=== PATIENT | female | born 1950 | race Caucasian/White ===

== ENCOUNTER 2022-09-12 10:48 | Emergency (ER) | payer MEDICARE, SELFPAY ==
--- NOTE | ~2022-09-12 | XR_ITS ---
EXAMINATION: XR abdomen obstructive series DATE: 09/12/2022 11:53 INDICATION: Right upper quadrant pain TECHNIQUE: Upright and supine views of the abdomen were obtained. COMPARISON: None. FINDINGS: The bowel gas pattern is normal. There are no dilated loops of bowel. No free intraperitone al gas is identified. Surgical clips in the right upper quadrant are likely from prior cholecystectom y. The visualized lung bases are clear. Surgical clips project over the left pelvis. Osteitis pubis i s noted. IMPRESSION: 1. Nonobstructive bowel gas pattern. Reviewed, dictated and finalized at location B.
--- NOTE | ~2022-09-12 | XR_ITS ---
Clinical Indication: Cough PA and lateral views of the chest: Comparison: None Findings: The lungs are clear, without evidence of focal consolidation or pleural effusion. Cardiome diastinal silhouette is within normal limits. Bones and soft tissues are unremarkable. Impression: Normal chest. Reviewed, dictated and finalized at location . Impression: Normal chest.
[2022-09-12 11:04] VITALS: BP 144/82; PULSE 64; RESP 16; TEMP 36.3; O2SAT 100
--- NOTE | 2022-09-12 11:26 | ECG_ITS ---
Measurements Intervals [place]ipple Rate: 54 P: -21 VA: 186 QRS: -27 QRSD: 98 T: -12 QT: 423 QTc: 401 Interpretive Statements SINUS BRADYCARDIA BORDERLINE LEFT AXIS DEVIATION [QRS AXIS < -20] VOLTAGE CRITERIA FOR LVH [MEETS CRITERIA IN ONE OF: R(aVL), S(V1), R(V5), R(V5/V6)+S(V1)] NO PREVIOUS ECG AVAILABLE FOR COMPARISON Electronically Signed On 09-12-2022 15:09:03 CDT by Carlene Brewer M.D.
[2022-09-12] MEDS: MAG HYDROX/AL HYDROX/SIMETH 30 ML UDC PO (12:12)
[2022-09-12] MEDS: LIDOCAINE HCL 2% VISC SOLN 15 ML UDC PO (12:12)
--- NOTE | 2022-09-12 12:22 | ED.ABDPAIN ---
HPI - Abdominal Pain General Chief Complaint: Abdominal Pain Stated Complaint: UPPER ABD PAIN Time Seen by Provider: 09/12/22 11:10 Source: patient Mode of arrival: ambulatory Limitations: no limitations History of Present Illness HPI narrative: 72-year-old female presents with complaint of right upper quadrant abdominal pain radiating to mid back starting at 3:00 a.m. this morning. Reports that she has been up since with the pain. Reports that she is belching more than usual. Reports that belching and also passing gas is relieving some of the pain. States that her gave her a Rolaids on the way here but that it was so she sucked on a little bit and then spit it out. She denies nausea vomiting. No chest pain or shortness of breath. No urinary symptoms. Denies constipation. Reports she had similar episode last week and it was better within 2 days. States at that time she thought that it was related to a cough that she had had. Cough is resolved. Patient reports history of a ?irregular heartbeat ?. States that her ?heart skips a beat ?. Called her PCP for an appointment but he is out of office today. She is well-appearing, no acute distress noted. All systems reviewed and negative except as noted above. Related Data Home Medications Medication Instructions Recorded Confirmed atorvastatin 10 mg tablet mg 09/12/22 lisinopril 10 mg tablet mg 09/12/22 metoprolol succinate 100 mg mg PO 09/12/22 tablet,extended release 24 hr pantoprazole 40 mg tablet,delayed mg PO 09/12/22 09/12/22 release spironolactone 25 mg tablet mg 09/12/22 Allergies Allergy/AdvReac Type Severity Reaction Status Date / Time No Known Allergies Allergy Unverified 05/17/11 10:22 Review of Systems Review of Systems: CONSTITUTIONAL: Denies fever, chills, or sweats. EYES: Denies visual changes, redness, or discharge. ENT: Denies rhinorrhea, congestion, sore throat, or otalgia. CARDIOVASCULAR: Denies chest pain, palpitations, or edema. RESPIRATORY: Denies cough or dyspnea. GASTROINTESTINAL: Reports right upper quadrant pain radiating to mid back with belching. Nausea, vomiting, or diarrhea. GENITOURINARY: Denies dysuria or hematuria. SKIN: Denies rash or itching. MUSCULOSKELETAL: Denies back pain, joint pain, or myalgia. NEUROLOGIC: Denies headache, numbness, or weakness. PSYCHIATRIC: Denies anxiety or depression. All other systems reviewed are negative, except as documented in HPI. PMFSH Comments At time of signature, agree with nursing past medical, surgical, social and family history. There is no relevant family history pertinent to the presenting complaint. Exam Narrative: GENERAL: This is a well-nourished, well-developed patient, in no apparent distress. HEAD: normocephalic, atraumatic. EYES: PERRL. Sclera clear/white. Vision is grossly intact. EARS: External ears normal NOSE: External nose normal . NECK: Neck supple, non-tender without lymphadenopathy, masses or thyromegaly. CARDIOVASCULAR: Bradycardia with regular heart rhythm without murmurs, gallops, or rubs. RESPIRATORY: Clear to auscultation. Breath sounds equal bilaterally. No wheezes, rales, or rhonchi. GASTROINTESTINAL: Abdomen soft, non-tender, nondistended. Bowel sounds are active. No hepato-splenomegaly, or palpable masses. No guarding. SKIN: warm, Dry, intact with no suspicious lesions or rash, good texture and turgor. NEURO: awake, alert, and oriented to person, place and time. There were no obvious focal neurologic abnormalities. EXTREMITIES: No joint tenderness, effusion, or edema noted. Course Course Level of Care: Express Care Visit Vital Signs Vital signs: Vital Signs Temperature 36.3 C L 09/12/22 11:04 Pulse Rate 64 09/12/22 11:04 Respiratory Rate 16 09/12/22 11:04 Blood Pressure 144/82 H 09/12/22 11:04 Pulse Oximetry 100 09/12/22 11:04 Temperature 36.3 C L 09/12/22 11:04 Pulse Rate 64 09/12/22 11:0
== END 2022-09-12 12:40 | disposition home or self-care (01) ==
PROVIDERS: Emergency Provider Nurse Practitioner Family; PCP Internal Medicine
DX: K30 Functional dyspepsia (principal); E78.00 Pure hypercholesterolemia, unspecified; I10 Essential (primary) hypertension
CPT/HCPCS: 71046; 74019; 81003; 93005; 99213; A9270; G0463

== ENCOUNTER 2023-04-28 09:03 | Outpatient (CLI) | payer MEDICARE, SELFPAY ==
--- NOTE | ~2023-04-28 | CT_ITS ---
EXAMINATION: CT sinus wo con DATE: 04/28/2023 09:24 INDICATION: Chronic sinusitis TECHNIQUE: Computed tomography (CT) of the paranasal sinuses was performed without intravenous contra st. The dose-length product (DLP) was 295.93 mGy-cm. Iterative reconstruction was used. COMPARISON: None FINDINGS: There is normal development and pneumatization of the paranasal sinuses. The frontal, sphen oid, ethmoid, and maxillary sinuses are clear. The bilateral ostiomeatal complexes are patent. Visual ized soft tissues are unremarkable. There is frontal skull hyperostosis (hyperostosis frontalis inter na), a normal variant. IMPRESSION: 1. Unremarkable paranasal sinuses. Reviewed, dictated and finalized at location L. [facility] [employer]
== END 2023-04-28 09:04 | disposition home or self-care (01) ==
LOC: ANHIMG 09:12
PROVIDERS: PCP Internal Medicine; Visit Provider Nurse Practitioner Family
DX: J32.9 Chronic sinusitis, unspecified (principal)
CPT/HCPCS: 70486

== ENCOUNTER 2023-07-29 07:59 | Outpatient (CLI) | payer MEDICARE, SELFPAY | END 2023-07-29 08:00 | disposition home or self-care (01) | LOC: ANHBWCAUD 08:00 | PROVIDERS: PCP Internal Medicine; Visit Provider Otolaryngology | DX: H90.3 Sensorineural hearing loss, bilateral (principal) | CPT/HCPCS: 92557; 92567 ==

== ENCOUNTER 2024-11-19 09:52 | Emergency (ER) | payer MEDICARE, SELFPAY ==
--- OUTSIDE RECORDS SUMMARY | 2024-11-19 09:54 | XMS_ITS | Encounter Summary ---
Author Organization [facility] Address [address] [place] [address] Phone Care Team Providers Care Electric Truck Driver Name Role Phone Denis Brewer MD Primary Care Provider [phone] Esequiel Talbot MD Unavailable [phone] Yissel Pena MD Unavailable [phone] Keyon Molina MD Primary Care Provider [phone] Encounter Details Date Type Department Care Team (Late st Contact Info) Description 05/05/2017 Orders Only [facility] ProviderTirso MD [address] [place] [id number] Social History Tobacco Use Types Packs/Day Years Used Date Smoking Tobacco: Never Alcohol Use Standard Drinks/Week Comments No 0 (1 standard drink = 0.6 oz pur e alcohol) Comments Unknown Sex and Gender Information Value Date Recorded Sex Assigned at Not on file Legal Sex 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 us Historical Provider LAB BLOOD ORDERABLES Lara l Result documented in this encounter Visit Diagnoses Not on filedocumented in this encounter Additional Health Concerns Infection Onset Date Last Indicated Resolved Time C. difficile Comment:Feces 03/24/18 03/24/2018 04/15/2018 documented as of this encounter Care Teams Electric Truck Driver Relationship Specialty Start Date End Date Denis Brewer MD [address] [place] [address] PCP - General 08/19/16 08/15/24 Keyon Molina MD [address] [place] [address] PCP - General Family Medicine 08/16/24 Esequiel Talbot MD [address] [place] [address] Consulting Physician Cardiovascular Disease 11/20/17 Yissel Pena MD [address] [place] [address] Consulting Physician Gastroenterology 11/20/17 documented as of this encounter
--- OUTSIDE RECORDS SUMMARY | 2024-11-19 09:54 | XMS_ITS | Referral Summary ---
Author Organization [facility] Address [address] [place] [address] Care Team Providers Care Sheriff'S Officer Name Role Phone Esequiel Talbot MD Unavailable [phone] Yissel Pena MD Unavailable [phone] Keyon Molina MD Primary Care Provider [phone] Encounters Date Type Department Care Team Description 11/01/2024 8:35 AM CDT - 11/01/2024 11:59 PM CDT Hospital Encounter [facility] [address] [place] [address] Osteoporosis screening; Post-menopause Discharge Disposition: Discharge to home or self care 09/30/2024 10:00 AM CDT Office Visit [facility] at [address] [place] [address] Donny Marshall NP Irritable bowel syndrome with both constipation and diarrhea (Primary Dx); History of colon resection; Small intestinal bacterial overgrowth (SIBO); Gastroesophageal reflux disease without esophagitis; Nausea without vomiting; Internal hemorrhoids from Last 3 Months Allergies Active Allergy Reactions Criticality Noted Date Comments Levofloxacin Other (See comments) Low 03/30/2023 Muscle pain Medications cholecalciferol (VITAMIN D-3) 5,000 unit capsule Take 1 capsule (5,000 Units total) by mouth synthetic plasterer before breakfast Active pantoprazole DR (PROTONIX) 40 mg EC tablet Take 1 tablet (40 mg total) by mouth every other day 45 tablet 3 04/26/20 21 Active vitamin B complex capsule Take 1 capsule by mouth daily Active senna-docusate (PERICOLACE) 8.6-50 mg Take one pill 1-2 times daily to help with better and more complete bowel movements. 60 tablet 1 01/09/20 23 Active simethicone (GAS-X) 125 mg capsule Take 180 mg by mouth every 6 (six) hours as needed for flatulence Active hydrocortisone (ANUSOL-HC) 25 mg suppository Insert 1 suppository (25 mg total) into the rectum 2 (two) times a day as needed for hemorrhoids 24 suppository 3 01/27/20 24 Active metoprolol XL (TOPROL-XL) 100 mg 24 hr tablet Take 1 tablet (100 mg total) by mouth daily 90 tablet 3 08/17/19 25 Active lisinopriL (PRINIVIL,ZESTR IL) 10 mg tablet Take 1 tablet (10 mg total) by mouth daily 90 tablet 3 08/17/19 25 Active atorvastatin (LIPITOR) 10 mg tablet Take 1 tablet (10 mg total) by mouth daily 90 tablet 3 08/17/19 25 Active spironolactone (ALDACTONE) 25 mg tablet Take 1 tablet (25 mg total) by mouth synthetic plasterer before breakfast 90 tablet 3 08/17/19 25 Active Active Problems Problem Noted Date Diagnosed Date Focal active colitis 03/30/2023 Internal hemorrhoids 03/30/2023 History of colon resection 03/30/2023 Abdominal pain, generalized 02/19/2023 Gastroesophageal reflux disease without esophagi tis 02/19/2023 Assessment & Plan (08/16/2024 1:08 PM CDT): Stable, well controlled; patient reports limited symptoms, continues to use pantoprazole p.r.n. Antibiotic causing adverse effect 02/19/2023 Irregular bowel habits 02/19/2023 Small intestinal bacterial overgrowth (SIBO) 09/2022 Irritable bowel syndrome with diarrhea Assessment & Plan (08/16/2024 1:09 PM CDT): Stable, well controlled; follows with GI; patient reports symptoms are currently limited, no significant abdominal pain, no episodes of diarrhea or constipation Mixed hyperlipidemia 02/16/2023 BMI 34.0-34.9,adult 08/26/2021 Intermittent diarrhea 08/26/2021 Weight loss 04/26/2021 BMI 32.0-32.9,adult 04/26/2021 Postprandial epigastric pain 01/25/2021 Family history of pancreatic cancer 01/25/2021 Duodenitis 01/25/2021 PVC's (premature ventricular contractions) 12/21 Assessment & Plan (08/16/2024 1:08 PM CDT): Stable, well controlled; no recent episodes Continue metoprolol 100 mg daily Assessment & Plan (04/17/2021 12:32 PM DIRECTOR TALENT ACQUISITION): Despite the patient's occasional frequent PVCs, her LV performance is normal in she has had no symptoms to suggest heart failure or palpitations. She will continue with her current therapy and maintain her continued tight blood pressure control. We will review her care on an annual or as-needed basis. Assessment & Plan (12/21/2020 10:40 AM CDT): Some of the comments made to the patient about the frequency of her PVCs have added to her anxiety. We discussed the fact that she has had no symptoms, no evidence for heart failure, and previously normal cardiac structure and performance at the time of angiography and with echocardiography. This puts her in a very safe risk group but I plan to further investigate her frequent P the sees with 24 hour Holter monitor and echocardiography. If LV performance has remained well preserved and her PVC burden is less than 10%, no further investigation or treatment will be necessary. Dyspepsia 11/29/2020 Postprandial abdominal bloating 11/29/2020 Nausea without vomiting 11/29/2020 Elevated bilirubin 11/29/2020 Kidney stone 03/23/2018 Diarrhea of presumed infectious origin 8 UTI (urinary tract infection) 02/24/2018 Overview (02/24/2018): Assessment & Plan (02/24/2018 1:52 PM CDT): Treatment started 02/24, 7 day course of PO Bactrim initiated (02/24-03/03). -first dose of Bactrim administered prior to discharge. Ventral hernia without obstruction or gangrene 0 01/11/2018 Overview (01/11/2018): Added automatically from request for surgery [id number] Acute left-sided thoracic back pain 11/20/2017 Pain of upper abdomen 01/09/2016 Overview (08/21/2016): Upper quadrant abdominal pain Disorder of gallbladder 11/14/2015 Overview (08/21/2016): Gallbladder disease Essential hypertension 10/01/2013 Overview (08/23/2016): Hypertension Assessment & Plan (08/16/2024 1:08 PM CDT): Stable, well controlled, blood pressure at goal; no chest pain pressure orthostatics Continue lisinopril 10 mg daily, metoprolol 100 mg daily, spironolactone 25 mg daily Assessment & Plan (04/17/2021 12:33 PM DIRECTOR TALENT ACQUISITION): Review of the patient's blood pressure log suggests systolic values in the 120s and 130s and diastolics less than 80. Assessment & Plan (12/21/2020 10:44 AM CDT): Patient has my again on her blood pressure therapy. I saw no need for alteration based on her PVC burden identified and so I suggested going back to what was previously tolerated and controlling her hypertension. 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 -Pain well controlled with PO medications 02/23. -02/24 patient discharged home with prescriptions for the following: Acetaminophen 500 mg 2 tabs Q 6 H prn for 7 days (56 tabs) Oxycodone 10 mg Q 6 H prn for 7 days (28 tabs) Status post repair of ventral hernia Assessment & Plan (02/24/2018 1:51 PM CDT): -02/15 Ex lap, SBR, mesh excision , strattice MESH, LLQ subfascial drain placed and RLQ drain subcutaneous. -NGT clamp trial successful and NGT removed 02/20. Patient passing flatus. 02/21: LLQ subfascial drain had fluid coming from around drain insertion site. No further drainage noted to LLQ JENNY drain on day of discharge, small amount of serous drainage noted to RLQ JENNY drain dressing. Patient instructed to change dressings prn. -Diet advanced to fiber restricted yesterday, patient tolerating diet. -Voiding and having bowel movements. -Patient to be discharged 02/24; Midline incision with wan clean, dry, no erythema or drainage noted. Resolved Problems Problem Noted Date Diagnosed Date Resolved Date Cardiovascular stress test abnormal 11/17/2017 08/16/2024 Overview (12/21/2020): Cath: 11/20/2017 Impression: 1. Normal left ventricular systolic function. 2. Mitral valve prolapse without mitral insufficiency. 3. Insignificant coronary artery disease. Diastolic heart failure (CMS/HCC) 11/17/2017 12/21/2020 Overview (11/17/2017): Added automatically from request for surgery [id number] Immunizations Immunization Administration Dates Next Due Pfizer SARS-CoV-2 Monovalent Vaccination (12+ Yrs) PURPLE 07/13/2020,06/22/2020 Pneumococcal Conjugate Pcv20 08/05/2022 ZOSTER LIVE 02/12/2015 Social History Tobacco Use Types Packs/Day Years Used Date Smoking Tobacco: Never Smokeless Tobacco: Never Tobacco Cessation:Counseling Given: Not Answered Alcohol Use Standard Drinks/Week Comments No 0 (1 standard drink = 0.6 oz pur e alcohol) [facility] Utilities Answer Date Recorded In the past 12 months has [employer], [employer], or [employer] threatened to shut off services in your home? No 08/16/2024 Humiliation, Afraid, Rape, and Kick questionnair e Answer Date Recorded Within the last year, have y ou been afraid of your partner or ex-partner? No 08/16/2024 Within the last year, have y ou been humiliated or emotionally abused in other ways by your partner or ex-partner? No Within the last year, have y ou been kicked, hit, slapped, or otherwise physically hurt by your partner or ex-partner? No 08/16/2024 Within the last year, have y ou been raped or forced to have any kind of sexual activity by your partner or ex-partner? No 08/16/2024 Social Connection and Isolat ion Panel [NHANES] Answer Date Recorded In a typical week, how many times do you talk on the phone with family, friends, or neighbors? More than three times a week 08/16/2024 How often do you get togethe r with friends or relatives? More than three times a week 08/16/2024 How often do you attend chur or episcopal services? More than 4 times per year 08/16/2024 Do you belong to any clubs o r organizations such as protestant groups, unions, fraternal or athletic groups, or school groups? No 08/16/2024 How often do you attend meet ings of the clubs or organizations you belong to? Never 08/16/2024 Are you , , di vorced, , never , or living with a partner? 08/16/2024 AUDIT-C Answer Date Recorded Q1: How often do you have a drink containing alc ohol? Never 09/30/2024 Q2: How many drinks containi ng alcohol do you have on a typical day when you are drinking? 1 or 2 09/30/2024 Q3: How often do you have six or more drinks on one occasion? Never 09/30/2024 Overall Financial Resource Strain (CARDIA) Answe r Date Recorded How hard is it for you to pa y for the very basics like food, housing, medical care, and heating? Not hard at all 08/16/2024 PHQ-2 Answer Date Recorded PHQ-2 Total Score (If total score is 3 or more points, staff should administer the PHQ-9) 0 08/16/2024 [facility] - Occupational Stress Questionnaire Answer Date Recorded Do you feel stress - tense, restless, nervous, or anxious, or unable to sleep at night because your mind is troubled all the time - these days? Only a little 08/16/2024 Exercise Vital Sign Answer Date Recorde d On average, how many days pe r week do you engage in moderate to strenuous exercise (like a brisk walk)? 7 days 08/16/2024 On average, how many minutes do you engage in exercise at this level? 20 min 08/16/2024 Hunger Vital Sign Answer Date Recorded Within the past 12 months, y ou worried that your food would run out before you got the money to buy more. Never true 08/17/19 25 Within the past 12 months, t he food you bought just didn't last and you didn't have money to get more. Never true 08/16/2024 PRAPARE - Transportation Answer Date Re corded In the past 12 months, has l ack of transportation kept you from medical appointments or from getting medications? No 05/2024 In the past 12 months, has l ack of transportation kept you from meetings, work, or from getting things needed for daily living? No 08/16/2024 PHQ-9 Answer Date Recorded PHQ-9 Total Score 0 08/16/2024 Housing Stability Vital Sign Answer Barrett e Recorded In the last 12 months, was t here a time when you were not able to pay the mortgage or rent on time? No 08/16/2024 In the past 12 months, how m any times have you moved where you were living? 0 08/16/2024 At any time in the [facility], were you homeless or living in a detention (including now)? No 08/16/2024 Personal Safety Answer Date Recorded Have you ever been in or are you currently in a harmful physical or emotional relationship or is someone making you feel afraid or unsafe? Denies 03/04/2023 Comments No Sex and Gender Information Value Date Recorded Sex Assigned at Not on file Legal Sex Female 11:53 PM DIRECTOR TALENT ACQUISITION Gender Identity Female 09/17/2022 3:30 PM CDT Sexual Orientation Not on file Last Filed Vital Signs Vital Sign Reading Time Taken Comments Blood Pressure 140/84 09/30/2024 9:50 AM CDT Pulse 63 09/30/2024 9:50 AM CDT Temperature 36.7 C (98 F) 08/16/2024 7:59 AM CDT Respiratory Rate 18 08/16/2024 7:59 AM CDT Oxygen Saturation 96% 09/30/2024 9:50 AM CDT Inhaled Oxygen Concentration - - Weight 103.1 kg (227 lb 3.2 oz) 09/30/2024 9:50 AM CDT Height 165.1 cm (5' 5) 09/30/2024 9:50 AM CDT Body Mass Index 37.81 09/30/2024 9:50 AM CDT Plan of Treatment Not on file Medical Devices Implanted Type Area Employment Interviewer Device Identifier Shelf Expiration Date Model / Serial / Lot [employer] Strattice [id number] Firm Matrix Tissue Porcine Dermis Sterile Latex Free - [id number] - [id number] Implanted:Qty: 1 on 02/15/2018 by Kenny Matt MD at [facility] Mesh N/A: Abdomen [employer] 04/16/2019 / [id number] / [id number] [id number] Left: Ankle Description:2006 Left ankle 1 plate and 7 screws Procedures Procedure Name Priority Date/Time Associated Diagnosis Comments DEXA AXIAL SKELETON BONE DENSITY 1 OR MORE SITES Schedule Routine, Read Routine (OP Routine) 11/01/2024 9:00 AM CDT Osteoporosis screening Post-menopause SCREENING MAMMOGRAM BILATERAL W LENIN Schedule Routine, Read Routine (OP Routine) 06/21/2024 10:10 AM DIRECTOR TALENT ACQUISITION Screening mammogram, encounter for COLONOSCOPY 03/04/2023 7:17 AM CDT HEPATITIS C ANTIBODY STAT 02/15/2018 2:20 PM CDT from Last 3 Months or Most Recently Relevant to Health Maintenance Results * Dexa Axial Skeleton Bone Density 1 or 2 Site (11/01/2024 9:00 AM CDT) Anatomical Region Laterality Modality Body N/A Other 11/01/2024 4:14 PM CDT Narrative 11/01/2024 4:16 PM CDT EXAM DESCRIPTION: DEXA AXIAL SKELETON BONE DENSITY 1 OR MORE SITES REASON FOR STUDY: 74 y/o year old F with given history of: Postmenopausal status. History prior fracture. Patient has taken/is taking vitamin-D and calcium. Employment Interviewer/Model: [employer] (S/N [id number]) Facility LSC value of 0.022 for the AP spine, 0.027 for the femur, and 0.023 for the forearm. CLINICAL INFORMATION: Current height: 60 inches Maximum height: 60 inches Weight: 227.2 pounds Risk factors: Prior fracture COMPARISON: 10/08/2022. Dissimilar scan types or analysis methods precludes assessment for calculating a significant change. FINDINGS: AP LUMBAR SPINE L1-L4: Total BMD is 0.985 g/cm2 T-score is -0.6 This is a 0.4% increase in comparison to prior exam. Dissimilar scan types or analysis methods precludes assessment for calculating a significant change. LEFT HIP: Total BMD is 0.838 g/cm2 T-score is -0.9 This is a 6% decrease in comparison to prior exam. Dissimilar scan types or analysis methods precludes assessment for calculating a significant change. Femoral neck BMD is 0.635 g/cm2 T-score is -1.9 FRAX: 10 year risk for a major osteoporotic fracture is 17 %, 10 year risk for a hip fracture is 3.7 % Per National Osteoporosis Foundation guidelines, this patient does meet the criteria for pharmacological treatment of patients with FRAX 10 year major osteoporotic fracture risk scores of = or greater than 20% or a 10 year probability of a hip fracture = or greater than 3%, to reduce fracture risk. Additional factors such as frequent falls are not represented in FRAX and warrant individual clinical judgment. IMPRESSION: 1. Low bone mass REFERENCE: Bone mineral density: T-Score: Normal (T-score above or = -1.0) Low bone mass (T-score between -1.0 and -2.5) replaces the previously used term osteopenia Osteoporosis (T-score = or below -2.5) Z-Score: Within the expected range for age (Z-score above -2.0) Below the expected range for age (Z-score is -2.0 or below) Please see below follow up recommendations. Medical evaluation for secondary causes of low bone mineral density may be appropriate. FRAX is a World Health Organization validated fracture risk assessment tool that calculates a person's 10 year probability of a major osteoporosis related fracture and hip fracture. According to the National Osteoporosis Foundation guidelines, postmenopausal women and men age 50 or older with low bone mass and a 10 year probability of a major osteoporosis related fracture = or greater than 20% or a 10 year probability of a hip fracture = or greater than 3% should be considered for pharmacological treatment for the prevention of osteoporosis. For further information, including treatment recommendations, please refer to the 2019 ISCD Official Positions (http://www.iscd.org) and the NOF's Clinician's Guide to Prevention and Treatment of Osteoporosis (http://www.nof.org/professionals/clinical-guidelines) THIS IS AN ELECTRONICALLY VERIFIED FINAL REPORT 11/01/2024 4:16 PM - Electronically signed by Majo Friedman M.D. TW: TW Report ID: [id number] Reading Location: [id number] Procedure Note Majo Friedman MD - 11/01/2024 EXAM DESCRIPTION: DEXA AXIAL SKELETON BONE DENSITY 1 OR MORE SITES REASON FOR STUDY: 74 y/o year old F with given history of:Postmenopausal status. History prior fracture. Patient has taken/is taking vitamin-Dand calcium. Employment Interviewer/Model: [employer] (S/N [id number]) Facility LSC value of 0.022 for the AP spine, 0.027 for the femur, and0.023 for the forearm. CLINICAL INFORMATION: Current height: 60 inches Maximum height: 60 inches Weight: 227.2 pounds Risk factors: Prior fracture COMPARISON: 10/08/2022. Dissimilar scan types or analysis methodsprecludes assessment for calculating a significant change. FINDINGS: AP LUMBAR SPINE L1-L4: Total BMD is 0.985 g/cm2 T-score is -0.6 This is a 0.4% increase in comparison to prior exam. Dissimilar scantypes or analysis methods precludes assessment for calculating a significantchange. LEFT HIP: Total BMD is 0.838 g/cm2 T-score is -0.9 This is a 6% decrease in comparison to prior exam. Dissimilar scan typesor analysis methods precludes assessment for calculating a significantchange. Femoral neck BMD is 0.635 g/cm2 T-score is -1.9 FRAX: 10 year risk for a major osteoporotic fracture is 17 %, 10 year risk for ahip fracture is 3.7 % Per National Osteoporosis Foundation guidelines, this patient does meetthe criteria for pharmacological treatment of patients with FRAX 10 year major osteoporotic fracture risk scores of = or greater than 20% or a 10 year probability of a hip fracture = or greater than 3%, to reduce fracturerisk. Additional factors such as frequent falls are not represented in FRAX and warrant individual clinical judgment. IMPRESSION: 1. Low bone mass REFERENCE: Bone mineral density: T-Score: Normal (T-score above or = -1.0) Low bone mass (T-score between -1.0 and -2.5) replaces thepreviously used term osteopenia Osteoporosis (T-score = or below -2.5) Z-Score: Within the expected range for age (Z-score above -2.0) Below the expected range for age (Z-score is -2.0 or below) Please see below follow up recommendations. Medical evaluation forsecondary causes of low bone mineral density may be appropriate. FRAX is a World Health Organization validated fracture risk assessmenttool that calculates a person's 10 year probability of a major osteoporosisrelated fracture and hip fracture. According to the National OsteoporosisFoundation guidelines, postmenopausal women and men age 50 or older with low bonemass and a 10 year probability of a major osteoporosis related fracture = or greater than 20% or a 10 year probability of a hip fracture = or greaterthan 3% should be considered for pharmacological treatment for the preventionof osteoporosis. For further information, including treatment recommendations, please referto the 2019 ISCD Official Positions (http://www.iscd.org) and the NOF's Clinician's Guide to Prevention and Treatment of Osteoporosis (http://www.nof.org/professionals/clinical-guidelines) THIS IS AN ELECTRONICALLY VERIFIED FINAL REPORT 11/01/2024 4:16 PM - Electronically signed by Majo Friedman M.D. TW: JOLANTA Obregon: 11/01/2024 4:16 PM Report ID: [id number] Reading Location: [id number] Keyon Molina MD IMG DXA PROCEDURES Final Result * Screening Mammogram Bilateral W Lenin (06/21/2024 10:10 AM DIRECTOR TALENT ACQUISITION) Anatomical Region Laterality Modality Breast Bilateral Mammography 06/21/2024 12:4 0 PM DIRECTOR TALENT ACQUISITION Impressions 06/21/2024 12:40 PM DIRECTOR TALENT ACQUISITION There is no mammographic evidence to suggest malignancy. The patient may continue screening mammography as per ACR guidelines. FINAL ASSESSMENT: BI-RADS Category 1: Negative. Electronically signed by: Della Diaz M.D. Narrative 06/21/2024 12:40 PM DIRECTOR TALENT ACQUISITION EXAMINATION: BILATERAL SCREENING MAMMOGRAM WITH TOMOGRAPHY HISTORY: Screening. COMPARISON(S): 2023, 2021, and 2020. TECHNIQUE: Full-field 2D images and digital tomosynthesis images were obtained. CAD was utilized. BREAST PARENCHYMAL COMPOSITION: There are scattered areas of fibroglandular density. FINDINGS: There are no suspicious masses. No suspicious calcifications are seen. There is no unexplained architectural distortion. There is no skin thickening seen. There are no mammographically abnormal lymph nodes seen in the axillae or elsewhere. us Self Screening Mammogram IMG MAMMO PROCEDURES Fi nal Result * COLONOSCOPY (03/04/2023 7:17 AM CDT) Anatomical Region Laterality Modality Other Narrative Procedure Note Yissel Pena MD - 03/04/2023 7:17 AM CDT [facility] Patient Name: Ira Good Procedure Date: 03/04/2023 7:17 AM Date of : 1950 Admit Type: Outpatient Age: 72 Gender: Female Attending MD: Yissel Pena M.D. Room: [facility] 1 Note Status: Finalized Patient Profile: This is a 72 year old female. Noted recent changesin bowel habits and dyspepsia. CT scan recently unremarkable. History of left colon resection inthe past. Procedure: Colonoscopy Indications: Last colonoscopy: December 2017, Change in bowelhabits Referring MD: Denis Brewer M.D. Providers: Yissel Pena M.D. Impression: - Diverticulosis in the entire examined colon. - The entire examined colon is normal otherwise. Biopsied. - The colonic anastomosis is normal. Biopsied. - Internal hemorrhoids. Recommendation: - Await pathology results. - Repeat colonoscopy in 10 years for screening purposes. - Continue present medications. Medicines: Monitored Anesthesia Care Complications: No immediate complications. Estimated Blood Loss: Estimated blood loss: none. Procedure: Pre-Anesthesia Assessment: - Prior to the procedure, a History and Physicalwas performed, and patient medications and allergieswere reviewed. The patient's tolerance of previous anesthesia was also reviewed. The risks andbenefits of the procedure and the sedation options and risks were discussed with the patient. All questions were answered, and informed consent was obtained. Prior Anticoagulants: The patient has taken noanticoagulant or antiplatelet agents. ASA Grade Assessment: Per anesthesia note and evaluation. After reviewing the risks and benefits, the patient was deemed in satisfactory condition to undergo the procedure. The benefits, risks and alternatives of theprocedure and sedation were discussed and informed consentwas obtained. All questions were answered. Please referto the signed informed consent document in the medical record. The scope was passed under direct vision.The Pediatric Colonoscope [id number]-[id number] was introduced through the anus and advanced to the the cecum, identified by appendiceal orifice andileocecal valve. The bowel preparation used was Miralax via split dose instruction. The bowel preparation usedwas bisacodyl tablets via split dose instruction. The quality of the bowel preparation was good. Bowelprep was administered using a split dose. Findings: The perianal and digital rectal examinations were normal. The cecum appeared normal. Multiple small and medium-mouthed diverticula were found in theentire colon. The colon (entire examined portion) appeared normal otherwise. Nopolyps and no mass lesions and no inflammatory changes. Random biopsies were taken with a cold forceps for histology. The anastomosis in the proximal rectum from previous resectionappeared normal. Biopsies were taken with a cold forceps for histology. Internal hemorrhoids were found during retroflexion. The hemorrhoids were small. Electronically signed by Yissel Pena M.D. Yissel Pena M.D. 03/04/2023 9:15:58 AM Number of Addenda: 0 Note Initiated On: 03/04/2023 7:17 AM Procedure Code(s): --- Professional --- 29255, Colonoscopy, flexible; with biopsy, single or multiple Diagnosis Code(s): --- Professional --- K64.8, Other hemorrhoids R19.4, Change in bowel habit K57.30, Diverticulosis of large intestine without perforation orabscess without bleeding CPT copyright 2020 [employer]. All rights reserved. The codes documented in this report are preliminary and upon house visitor reviewmay be revised to meet current compliance requirements. Recognized by the [employer] for promoting quality in endoscopy us Yissel Pena MD ENDOSCOPY PROCEDURES Final Result * Hepatitis C antibody (02/15/2018 2:20 PM CDT) Hep C Ab Nonreactive Nonreactive [facility] Comment: Interpretive Data Positive results should be confirmed by a molecular method. If positive, a second separately collected sample should be submitted for Hepatitis C Virus (HCV) RNA Detection and Quantitation by Real-Time Reverse Barrel Maker-PCR (RT-PCR). Current interpretive data was last revised on 2016. Blood specimen (specimen) 02/15/2018 2:20 PM CDT 02/15/2018 3:09 PM CDT Narrative [facility] - 02/16/2018 10:38 AM CDT us Notinfile Unknown LAB MICROBIOLOGY - GENERAL ORD ERABLES Edited Result - Final [facility] Department [place] [address] from Last 3 Months or Most Recently Relevant to Health Maintenance Additional Health Concerns Infection Onset Date Last Indicated C. difficile Comment:Feces 03/24/18 03/24/2018 04/15/2018 Insurance MEDICARE [facility] MEDICARE [facility] MEDICARE [employer] Advance Directives For more information, please contact: [phone] * Full Code (Latest Code Status on File) Date Activated Date Inactivated Comments 03/04/2023 7:11 AM 03/04/2023 2:08 PM * Full Code Date Activated Date Inactivated Comments 03/04/2023 7:11 AM 03/04/2023 7:11 AM * Full Code Date Activated Date Inactivated Comments 12/05/2020 9:50 AM 12/05/2020 4:41 PM * Full Code Date Activated Date Inactivated Comments 02/15/2018 7:46 PM 02/24/2018 8:32 PM * Full Code Date Activated Date Inactivated Comments 12/21/2017 9:51 AM 12/21/2017 2:15 PM Care Teams Sheriff'S Officer Relationship Specialty Start Date End Date Keyon Molina MD [address] [place] [address] PCP - General Family Medicine 08/16/24 Esequiel Talbot MD Consulting Physician Cardiovascular Disease 11/20/17 Yissel Pena MD Consulting Physician Gastroenterology 11/20/17
--- OUTSIDE RECORDS SUMMARY | 2024-11-19 09:54 | XMS_ITS | Clinical Summary ---
Author Organization [facility] Address [address] [facility], [address] [address] Phone Care Team Providers Care Family Law Legal Assistant Name Role Phone Denis Brewer MD Primary Care Provider Andrei Chen DO Unavailable Catie Ware APRN, LATHE MACHINIST Unavailable Allergies Active Allergy Reactions Criticality Noted Date Comments Levofloxacin Other (see Comments) 03/30/2023 Muscle pain Medications Cholecalciferol (VITAMIN D-3 PO) Take 5,000 Units by mouth daily. Active atorvastatin (LIPITOR) 10 MG Tablet Take 10 mg by mouth daily. 07/12/2022 Active B Complex Vitamins Capsule Take 1 Capsule by mouth daily. Active lisinopril (PRINIVIL, ZESTRIL) 10 MG Tablet Take 10 mg by mouth daily. 07/12/2022 Active Cholecalciferol (VITAMIN D) 125 mcg Capsule Take 5,000 Units by mouth. Active famotidine (PEPCID) 20 MG Tablet Take 20 mg by mouth nightly. Active Hydrocortisone, Perianal, (Anusol-HC) 2.5 % Cream Apply daily. Apply to rectum as directed. 28 g 04/17/2023 Active hydrocortisone (ANUSOL-HC) 25 MG Suppository 25 mg by Rectal route every 12 hours. 06/30/2023 Active linaclotide (LINZESS) 145 MCG Capsule Take 145 mcg by mouth every morning (before breakfast). 06/30/2023 Active Simethicone 125 MG Capsule Take 180 mg by mouth. Active pantoprazole (PROTONIX) 40 MG Tablet Delayed Response Take 1 Tablet by mouth daily. 90 Tablet 09/01/2023 Active spironolactone (ALDACTONE) 25 MG Tablet TAKE 1 TABLET BY MOUTH EVERY DAY 30 Tablet 05/02/2024 Active metoprolol Succinate (TOPROL-XL) 100 MG TABLET SR 24 HR TAKE 1 TABLET BY MOUTH EVERY DAY 30 Tablet 05/02/2024 Active Active Problems Problem Noted Date Diagnosed Date Mixed hyperlipidemia 02/16/2023 GERD without esophagitis 07/05/2021 Vitamin D deficiency 07/05/2021 Frequent PVCs 12/18/2020 Essential hypertension, benign 04/02/2020 Immunizations Immunization Administration Dates Next Due Pneumococcal conjugate PCV20 , polysaccharide YKH508 conjugate, adjuvant, PF 08/05/2022 Zoster Vaccine, live 02/13/2015 Family History Medical History Relation Name Comments No Known Problems Brother 1 No Known Problems Brother 2 Lung Cancer Father Cancer Mother pancreatic Hypertension Mother Osteoarthritis Mother Relation Name Status Comments Brother 1 Alive Brother 2 Alive Father Mother Social History Tobacco Use Types Packs/Day Years Used Date Smoking Tobacco: Never Passive Smoke Exposure: Never Smokeless Tobacco: Never Tobacco Cessation:Counseling Given: No Alcohol Use Standard Drinks/Week Comments No 0 (1 standard drink = 0.6 oz pur e alcohol) [facility] Utilities Answer Date Recorded In the past 12 months has [employer], oil, or water [employer] threatened to shut off services in your home? No 09/01/2023 Social Connection and Isolation Panel Answer Date Recorded In a typical week, how many times do you talk on the phone with family, friends, or neighbors? More than three times a week 09/01/2023 How often do you get togethe r with friends or relatives? More than three times a week 09/01/2023 How often do you attend [facility] or gnosticism services? More than 4 times per year 09/01/2023 Do you belong to any clubs o r organizations such as zoroastrianism groups, unions, fraternal or athletic groups, or school groups? Yes 09/01/2023 How often do you attend meet ings of the clubs or organizations you belong to? More than 4 times per year 09/01/2023 Are you , , di vorced, , never , or living with a partner? 09/01/2023 AUDIT-C Answer Date Recorded Q1: How often do you have a drink containing alcohol? Never 09/01/2023 Q2: How many drinks containi ng alcohol do you have on a typical day when you are drinking? Patient does not drink Q3: How often do you have si x or more drinks on one occasion? Never 09/01/2023 Overall Financial Resource Strain (CARDIA) Answe r Date Recorded How hard is it for you to pa y for the very basics like food, housing, medical care, and heating? Not hard at all 09/01/2023 PHQ-2 Answer Date Recorded Total Score - Questions 1-9 0 08/16 [facility] - Occupational Stress Questionnaire Answer Date Recorded Do you feel stress - tense, restless, nervous, or anxious, or unable to sleep at night because your mind is troubled all the time - these days? Not at all 09/01/2023 Exercise Vital Sign Answer Date Recorde d On average, how many days pe r week do you engage in moderate to strenuous exercise (like a brisk walk)? 2 days 09/01/2023 On average, how many minutes do you engage in exercise at this level? 20 min 09/01/2023 Hunger Vital Sign Answer Date Recorded Within the past 12 months, y ou worried that your food would run out before you got the money to buy more. Never true 09/01/19 24 Ran Out of Food in the Last Year Not on file 09/01/2023 PRAPARE - Transportation Answer Date Re corded In the past 12 months, has l ack of transportation kept you from medical appointments or from getting medications? No 08/16 In the past 12 months, has l ack of transportation kept you from meetings, work, or from getting things needed for daily living? No 09/01/2023 Housing Stability Vital Sign Answer Barrett e Recorded In the last 12 months, was t here a time when you were not able to pay the mortgage or rent on time? No 09/01/2023 In the last 12 months, how many places have you lived? 2 09/01/2023 In the last 12 months, was t here a time when you did not have a steady place to sleep or slept in a custodial (including now)? No 09/01/2023 Sexually Active Control Partners Comments Not Currently Comments No Sex and Gender Information Value Date Recorded Sex Assigned at Not on file Legal Sex Female 11:16 PM CDT Gender Identity Not on file Sexual Orientation Not on file Last Filed Vital Signs Vital Sign Reading Time Taken Comments Blood Pressure 116/68 09/01/2023 10:46 AM CDT Pulse 58 09/01/2023 10:46 AM CDT Temperature 36.6 C (97.9 F) 09/01/2023 10:46 AM CDT Respiratory Rate 14 09/15/2022 1:52 PM CDT Oxygen Saturation 96% 09/01/2023 10:46 AM CDT Inhaled Oxygen Concentration - - Weight 93.4 kg (206 lb) 09/01/2023 10:46 AM CDT Height 165.1 cm (5' 5) 09/01/2023 10:46 AM CDT Body Mass Index 34.28 09/01/2023 10:46 AM CDT Plan of Treatment Health Maintenance Due Date Last Done Comments Hepatitis C Virus (HCV) Screening 1950 TdaP Immunization 1950 Cologuard 1995 Immunochemical Fecal Occult Blood 1995 Zoster Immunization (2 of 3) 04/10/2015 02/13/2015 SARS-COV-2 Immunization ( season) 2024 04/06/2021, 07/13/2020, 06/22/2020 DEXA Bone Density 10/08/2024 10/08/2022, , 10/08/2022, Additional history exists Influenza Immunization (Season Ended) 2025 Respiratory Syncytial Virus (RSV) Immunization (Adult) (1 - 1-dose 75+ series) 2025 Mammogram 06/21/2025 06/21/2024, 01/0 08/2023, 05/17/2022, Additional history exists Colonoscopy 03/04/2033 03/04/2023, 02/15, 03/04/2023, Additional history exists Colorectal Cancer Screening 03/04/2033 Pneumococcal Immunization (50+ years) Completed 08/05/2022 Pneumococcal Immunization Combined Discontinued 08/05/2022 Hepatitis B Immunization Aged Out No longer eligible based on patient's age to complete this topic Human Papillomavirus (HPV) Immunization Aged Out No longer eligible based on patient's age to complete this topic Meningococcal Immunization (ACWY) Aged Out No longer eligible based on patient's age to complete this topic Rotavirus Immunization Aged Out No lo nger eligible based on patient's age to complete this topic Procedures Procedure Name Priority Date/Time Associated Diagnosis Comments COLONOSCOPY 03/04/2023 12:00 AM CDT [facility] BONE DENSITOMETRY AXIAL SKELETON Routine 10/08/2022 12:00 AM CDT Asymptomatic menopausal state HM MAMMOGRAPHY BILATERAL Routine 08/19/2016 from Last 3 Months or Most Recently Relevant to Health Maintenance Results * COLONOSCOPY (03/04/2023 12:00 AM CDT) 03/04/2023 us Provider Scan PROCEDURE/MINOR SURGICAL ORDERAB LES Final Result SCAN * [facility] BONE DENSITOMETRY AXIAL SKELETON (10/08/2022 12:00 AM CDT) Anatomical Region Laterality Modality BODY N/A Other 10/08/2022 us Denis Brewer MD IMG DEXA ORDERABLES Final R esult * HM MAMMOGRAPHY BILATERAL (08/19/2016) Anatomical Region Laterality Modality Other us Not On File Provider [place] - IMAGING Final Resul t from Last 3 Months or Most Recently Relevant to Health Maintenance Insurance MEDICARE [facility] [place] [address] Care Teams Family Law Legal Assistant Relationship Specialty Start Date End Date Denis Brewer MD [address] [place] [address] PCP - General Internal Medicine 10/02/15 Andrei Chen DO [address] [place] [address] Gastroenterology 10/02/15 Catie Ware APRN, LATHE MACHINIST [address] [place] [address] Nurse Practitioner Advanced Practice Nurse 10/23/15
--- OUTSIDE RECORDS SUMMARY | 2024-11-19 09:54 | XMS_ITS | Encounter Summary ---
Author Organization [facility] Address [address] [place] [address] Phone Care Team Providers Care White Sugar Pan Tank Operator Name Role Phone Denis Brewer MD Primary Care Provider Andrei Chen DO Unavailable [phone] Catie Ware APRN, [facility] Unavailable Reason for Visit * Reason Comments Medication Refill Encounter Details Date Type Department Care Team (Late st Contact Info) Description 07/09/2022 Refill [facility] - Internal Medicine - [place] [address] [place] [address] Denis Brewer MD [address] [facility] [place] [address] Medication Refill Social History Tobacco Use Types Packs/Day Years Used Date Smoking Tobacco: Never Smokeless Tobacco: Never Alcohol Use Standard Drinks/Week Comments No 0 (1 standard drink = 0.6 oz pur e alcohol) PHQ-2 Answer Date Recorded Total Score - Questions 1-9 0 06/18 Sexually Active Control Partners Comments Not Currently Comments No Sex and Gender Information Value Date Recorded Sex Assigned at Not on file Legal Sex Female 11:16 PM CDT Gender Identity Not on file Sexual Orientation Not on file documented as of this encounter Miscellaneous Notes * Telephone Encounter - Bekah Calabrese RN - 07/09/2022 8:11 AM CST Medication failed the protocol, provider to review and approve the medication order if appropriate. Requested Prescriptions Pending Prescriptions Disp Refills spironolactone (ALDACTONE) 25 MG Tablet [Pharmacy Med Name: SPIRONOLACTONE 25 MG TABLET] 90 Tablet 1 Sig: TAKE 1 TABLET BY MOUTH EVERY DAY Diuretics Protocol Failed - 07/09/2022 12:43 AM Failed - Blood pressure on record in past 12 months Clinician-entered: BP Readings from Last 3 Encounters: 07/05/21 116/66 03/26/21 128/74 02/04/21 130/74 Patient-entered: No data recorded Passed - Serum potassium on record in past 12 months POTASSIUM Date Value Ref Range Status 07/12/2021 4.6 3.5 - 5.1 mmol/L Final Passed - Serum sodium on record in past 12 months SODIUM Date Value Ref Range Status 07/12/2021 141 136 - 144 mmol/L Final Passed - Visit with relevant provider in past 12 months or upcoming 90 days Recent Visits Date Type Provider Dept 01/01/22 Telemedicine Denis Brewer MD [facility] Showing recent visits within past 365 days and meeting all other requirements Future Appointments No visits were found meeting these conditions. Showing future appointments within next 90 days and meeting all other requirements Passed - GFR on record in past 12 months GFR, EST. NONAFRICAN Date Value Ref Range Status 07/12/2021 >60 >=60 Final metoprolol Succinate (TOPROL-XL) 100 MG TABLET SR 24 HR [Pharmacy Med Name: METOPROLOL SUCC ER 100 MG TAB] 90 Tablet 1 Sig: TAKE 1 TABLET BY MOUTH EVERY DAY Beta-Blockers Protocol Failed - 07/09/2022 12:43 AM Failed - BP on record in the past year Clinician-entered: BP Readings from Last 3 Encounters: 07/05/21 116/66 03/26/21 128/74 02/04/21 130/74 Patient-entered: No data recorded Passed - Visit with relevant provider in past 12 months or upcoming 90 days Recent Visits Date Type Provider Dept 01/01/22 Telemedicine Denis Brewer MD [facility] Karin Farmer Showing recent visits within past 365 days and meeting all other requirements Future Appointments No visits were found meeting these conditions. Showing future appointments within next 90 days and meeting all other requirements AL ASSISTANT TEACHER documented in this encounter Plan of Treatment Not on file documented as of this encounter Visit Diagnoses Not on filedocumented in this encounter Additional Health Concerns Assessment Noted Time PHQ-9 Depression Total Score: 0 12/19/19 9:00 AM CDT documented as of this encounter Care Teams White Sugar Pan Tank Operator Relationship Specialty Start Date End Date Denis Brewer MD [address] [place] [address] PCP - General Internal Medicine 10/02/15 Andrei Chen DO [address] [place] [address] Gastroenterology 10/02/15 Catie Ware APRN, OIL PAINTER [address] [place] [address] Nurse Practitioner Advanced Practice Nurse 10/23/15 documented as of this encounter
--- OUTSIDE RECORDS SUMMARY | 2024-11-19 09:54 | XMS_ITS | Clinical Summary ---
Author Organization [facility] Address [address] [place] [address] Care Team Providers Care Collection Manager Name Role Phone Esequiel Talbot MD Unavailable [phone] Yissel Pena MD Unavailable [phone] Keyon Molina MD Primary Care Provider [phone] Allergies Active Allergy Reactions Criticality Noted Date Comments Levofloxacin Other (See comments) Low 03/30/2023 Muscle pain Medications cholecalciferol (VITAMIN D-3) 5,000 unit capsule Take 1 capsule (5,000 Units total) by mouth collections technician before breakfast Active pantoprazole DR (PROTONIX) 40 [...] 1 tablet (25 mg total) by mouth collections technician before breakfast 90 tablet 3 08/17/19 25 [...] daily Assessment & Plan (04/17/2021 12:32 PM CONTROLLER MECHANIC): Despite the patient's occasional frequent PVCs, her [...] (01/11/2018): Added automatically from request for surgery [id number] Acute left-sided thoracic back pain 11/20/2017 Pain [...] daily Assessment & Plan (04/17/2021 12:33 PM CONTROLLER MECHANIC): Review of the patient's blood pressure log [...] (02/24/2018 1:50 PM CDT): -Epidural infusion and REPORTING COORDINATOR -Well controlled -Epidural day 7, will keep [...] (11/17/2017): Added automatically from request for surgery [id number] Encounters Date Type Department Care Team Description 11/01/2024 8:35 AM CDT - 11/01/2024 11:59 PM CDT Hospital Encounter [facility] [address] [place] [address] Osteoporosis screening; Post-menopause Discharge Disposition: Discharge to home or self care 09/30/2024 10:00 AM CDT Office Visit [facility] at [address] [place] [id number] Donny Marshall NP Irritable bowel syndrome with both constipation and diarrhea (Primary Dx); History of colon resection; Small intestinal bacterial overgrowth (SIBO); Gastroesophageal reflux disease without esophagitis; Nausea without vomiting; Internal hemorrhoids from Last 3 Months Immunizations Immunization Administration Dates Next Due Pfizer SARS-CoV-2 Monovalent Vaccination (12+ Yrs) PURPLE 07/13/2020,06/22/2020 Pneumococcal Conjugate Pcv20 08/05/2022 ZOSTER LIVE 02/12/2015 Surgical History Surgery Date Site/Laterality Comments ANKLE SURGERY 05/18/2006 - 05/17/2007 Left ankle surgery OTHER SURGICAL HISTORY 05/18/1973 - 05/17/1974 : spontaneous OTHER SURGICAL HISTORY 05/18/1974 - 05/17/1975 : 6 hr labor OTHER SURGICAL HISTORY 05/18/1978 - 05/17/1979 : 12 hr labor OTHER SURGICAL HISTORY 05/18/1986 - 05/17/1987 : induced INGUINAL HERNIA REPAIR 05/18/2011 - 05/17/2012 Bilateral Bilateral Inguinal Hernia Repair HERNIA REPAIR 05/18/2012 - 05/17/2013 hernia repair LAPAROSCOPIC CHOLECYSTECTOMY 05/18/2015 - 05/17/2016 Laparoscopic Cholecystectomy TOTAL ABDOMINAL HYSTERECTOMY W/ BILATERAL SALPINGOOPHORECTOMY 05/18/1993 - 05/17/1994 BONY with BSO COLONOSCOPY 04/2013, 12/2017 LEFT COLECTOMY 05/18/2011 - 05/17/2012 fistula repair UPPER GASTROINTESTINAL ENDOSCOPY 12/2017 CARDIAC CATHETERIZATION 11/20/2017 insignificant CAD COLONOSCOPY 03/04/2023 Medical History Medical History Date Comments Hx Other Medical bladder and kid jeanette problems Hypertension Hypertension Hx Other Medical 1973 ; Outc ome: Unknown sex Hx Other Medical 1974 ; Outc ome: 37 week 8 lb(s) 1 oz Female Hx Other Medical 1978 ; Outc ome: 36 week 8 lb(s) 2 oz Female Hx Other Medical 1986 ; Comm ents: genetic abnormalities; Outcome: Unknown sex Abnormal stress test Hiatal hernia Stomach ulcer Gallbladder attack Nausea Heartburn Abdominal pain High blood pressure Diverticulitis Chest pain GERD (gastroesophageal reflux disease) Cardiomegaly PONV (postoperative nausea a nd vomiting) with pain medication on empt y stomach History of transfusion History of blood transfusion 1995 Dur ing Hysterectomy CHF (congestive heart failure) (HCC) Coronary artery disease Sick sinus syndrome (HCC) Shortness of breath Nausea 11/29/2020 Family History Medical History Relation Name Comments Lung cancer Father Cancer, lung; C ause of : Cancer, lung/Cancer, lung; Deep vein thrombosis Mother Hypertension Mother Hypertension; Pancreatic cancer Mother Cancer, pa ncreas; Cause of : Cancer, pancreas Breast cancer Neg Hx Ovarian cancer Neg Hx Thyroid cancer Neg Hx Relation Name Status Comments Father (Age 72) Mother (Age 87) Social History Tobacco Use Types Packs/Day Years Used Date Smoking Tobacco: Never Smokeless Tobacco: Never Tobacco Cessation:Counseling Given: Not Answered Alcohol Use Standard Drinks/Week Comments No 0 (1 standard drink = 0.6 oz pur e alcohol) [facility] Utilities Answer Date Recorded In the past 12 months has e [employer], gas, oil, or water [employer]ce[employer] threatened to shut off services in your [...] week 08/16/2024 How often do you attend [facility] or confucianist services? More than 4 times per year 08/16/2024 Do you belong to any clubs o r organizations such as worship groups, unions, fraternal or athletic groups, or [...] staff should administer the PHQ-9) 0 08/16/2024 [facility] - Occupational [...] any time in the past 12 m [facility], were you homeless or living in a intermediate (including now)? No 08/16/2024 Personal Safety Answer Date Recorded Have you ever been in or are you currently in a harmful physical or emotional relationship or is someone making you feel afraid or unsafe? Denies 03/04/2023 Comments No Sex and Gender Information Value Date Recorded Sex Assigned at Not on file Legal Sex Female 11:53 PM CONTROLLER MECHANIC Gender Identity Female 09/17/2022 3:30 PM CDT Sexual Orientation Not on file Obstetrics History Para Term AB IAB SAB Ectopic Multiple Livin g Live Births 3 2 2 Date Outcome GA Total Labor Labor/2nd/3rd Weight Sex Type Anes PTL Bhavna A1 A5 Name Clin Term Term Last Filed Vital Signs Vital Sign Reading [...] 09/30/2024 9:50 AM CDT Plan of Treatment Health Maintenance Due Date Last Done Comments DTaP/Tdap/Td Vaccine (1 - Tdap) 1961 Hepatitis B Screening 1968 Zoster Vaccine (2 of 3) 04/09/2015 02/12/2015 Covid-19 Vaccine (3 - 2023-2 5 season) 2024 07/13/2020, 06/22/2020 Influenza Vaccine (Season Ended) 2025 Breast Cancer Screening-Mammogram 06/21/2025 06/21/2024, 05/21/2023, 05/21/2023, Additional history exists Depression Screening 08/16/2025 08/16/2024, 08/17/19 25 Fall Risk Assessment 08/16/2025 08/16/2024, 03/04/20 23 Well Visit 65+ 08/16/2025 08/16/2024 Osteoporosis Screening-Bone Density Scan 11/01/2026 11/01/2024, 10/08/2022, 10/08/2022, Additional history exists Colon Cancer Screening-Colonoscopy 03/04/2033 03/04/2023, 12/21/2017 Hepatitis C Screening Completed 02/15/2018 Pneumococcal vaccine 65+ Completed 08/05/2022 Colon Cancer Screening-CT Colonography Discontinued 03/04/2023, 12/21/2017 Colon Cancer Screening-DNA Stool Discontinued 03/04/20 23, 12/21/2017 Colon Cancer Screening-FIT Discontinued 03/04/2023, Colon Cancer Screening-Sigmoidoscopy Discontinued 03/04/2023, 12/21/2017 Medical Devices Implanted Type Area Rec Therapist Device Identifier Shelf Expiration Date Model / Serial / Lot [employer] Strattice [id number] Firm Matrix Tissue Porcine Dermis Sterile Latex Free - [id number] - [id number] Implanted:Qty: 1 on 02/15/2018 by Kenny Matt MD at [facility] Mesh N/A: Abdomen [employer] 04/16/2019 / / [id number] 3m Left: Ankle Description:2006 Left ankle 1 plate and 7 screws Procedures Procedure Name Priority Date/Time Associated Diagnosis Comments DEXA AXIAL SKELETON BONE DENSITY 1 OR MORE SITES Schedule Routine, Read Routine (OP Routine) 11/01/2024 9:00 AM CDT Osteoporosis screening Post-menopause SCREENING MAMMOGRAM BILATERAL W LENIN Schedule Routine, Read Routine (OP Routine) 06/21/2024 10:10 AM CONTROLLER MECHANIC Screening mammogram, encounter for COLONOSCOPY 03/04/2023 7:17 [...] Patient has taken/is taking vitamin-D and calcium. Rec Therapist/Model: [employer] SL (S/N [id number]) Facility LSC value of 0.022 for the [...] Majo Friedman M.D. TW: TW Report ID: [id number] Reading Location: [place] [address] Procedure Note Majo Friedman MD - 11/01/2024 EXAM DESCRIPTION: DEXA AXIAL SKELETON BONE DENSITY 1 OR MORE SITES REASON FOR STUDY: 74 y/o year old F with given history of:Postmenopausal status. History prior fracture. Patient has taken/is taking vitamin-Dand calcium. Rec Therapist/Model: [employer] SL (S/N [id number]) Facility LSC value of 0.022 for the [...] signed by Majo Friedman M.D. TW: JOLANTA Report ID: [id number] Reading Location: [id number] Keyon Molina MD [facility] [place] DXA PROCEDURES Final Result * Screening Mammogram Bilateral W Lenin (06/21/2024 10:10 AM CONTROLLER MECHANIC) Anatomical Region Laterality Modality Breast Bilateral Mammography 06/21/2024 12:4 0 PM CONTROLLER MECHANIC Impressions 06/21/2024 12:40 PM CONTROLLER MECHANIC There is no mammographic evidence to suggest malignancy. The patient may continue screening mammography as per ACR guidelines. FINAL ASSESSMENT: BI-RADS Category 1: Negative. Electronically signed by: Della Diaz M.D. Narrative 06/21/2024 12:40 PM CONTROLLER MECHANIC EXAMINATION: BILATERAL SCREENING MAMMOGRAM WITH TOMOGRAPHY HISTORY: [...] Pena MD - 03/04/2023 7:17 AM CDT [facility] Patient Name: Ira Good Procedure Date: 03/04/2023 7:17 AM Date of : 1950 Admit Type: Outpatient Age: 72 Gender: Female Attending MD: Yissel Pena M.D. Room: [facility] END[facility]COPY ROOM 1 Note Status: Finalized Patient [...] passed under direct vision.The Pediatric Colonoscope [id number] was introduced through the anus and advanced [...] 7:17 AM Procedure Code(s): --- Professional --- 27592, Colonoscopy, flexible; with biopsy, single or multiple Diagnosis Code(s): --- Professional --- K64.8, Other hemorrhoids R19.4, Change in bowel habit K57.30, Diverticulosis of large intestine without perforation orabscess without bleeding CPT copyright 2020 [employer]. All rights reserved. The codes documented in this report are preliminary and upon catastrophe claims supervisor reviewmay be revised to meet current compliance requirements. Recognized by the [employer] for promoting quality in endoscopy Yissel Pena MD ENDOSCOPY PROCEDURES Final Result * Hepatitis C antibody (02/15/2018 2:20 PM CDT) Hep C Ab Nonreactive Nonreactive [facility] Comment: Interpretive Data Positive results should be confirmed by a molecular method. If positive, a second separately collected sample should be submitted for Hepatitis C Virus (HCV) RNA Detection and Quantitation by Real-Time Reverse Academic Advisor-PCR (RT-PCR). Current interpretive data was last revised on 2016. Blood specimen (specimen) 02/15/2018 2:20 PM CDT 02/15/2018 3:09 PM CDT John [facility] - 02/16/2018 10:38 AM CDT us Notinfile Unknown LAB MICROBIOLOGY - GENERAL ORD ERABLES Edited Result - Final [facility] Department [place] [address] from Last 3 Months or Most Recently Relevant to Health Maintenance Additional Health Concerns Infection Onset Date Last Indicated C. difficile Comment:Feces 03/24/18 03/24/2018 04/15/2018 Insurance MEDICARE [facility] Address: [facility] [address] [place] [address] [facility] MEDICARE [facility] MEDICARE [facility] Advance Directives For more information, please contact: [phone] * Full Code (Latest Code Status on [...] 9:51 AM 12/21/2017 2:15 PM Care Teams Collection Manager Relationship Specialty Start Date End Date Keyon Molina MD [address] [place] [address] PCP - General Family Medicine 08/16/24 Esequiel Talbot MD Consulting Physician Cardiovascular Disease 11/20/17 Yissel Pena MD Consulting Physician Gastroenterology 11/20/17
[2024-11-19 10:06] VITALS: BP 144/93; PULSE 57; RESP 16; TEMP 36.1; O2SAT 97
--- NOTE | 2024-11-19 10:18 | ED.SKABFB ---
HPI - Skin/Abscess/Foreign Bdy General Chief complaint: Skin/Abscess/Foreign Body Stated complaint: Rash patient presents to [facility] complaints itchy burning rash armpits that began over the last week and half. Patient reports she normally gets patient min of her deodorant and is a pink scented form but this time they sent to her two of her normal pink and one unscented kind. Patient noted when she did the unscented kind this burned and caused the rash. Patient noted using topical Benadryl cream, oral Benadryl, triple antibiotic ointment, and hydrocortisone with minimal relief of symptoms. Patient also reports she has not used any deodorant since the rash started Related Data Home Medications ?Medication ?Instructions ?Recorded ?Confirmed ?Last Taken ?Type atorvastatin 10 mg tablet mg 09/12/22 04/13/23 Unknown History lisinopril 10 mg tablet mg 09/12/22 04/13/23 Unknown History metoprolol succinate 100 mg mg PO 09/12/22 04/13/23 Unknown History tablet,extended release 24 hr spironolactone 25 mg tablet mg 09/12/22 04/13/23 Unknown History vitamin D3 125 mcg (5,000 cap PO 04/13/23 04/13/23 Unknown History unit)-vitamin K2 90 mcg capsule Allergies Allergy/AdvReac Type Severity Reaction Status Date / Time No Known Allergies Allergy Verified 11/19/24 10:06 Review of Systems Constitutional: Constitutional: Reports as per HPI, Denies chills, Denies fatigue, Denies fever(s) and Denies weakness Eyes: Eyes: Reports no additional eye complaints Cardiovascular: Cardiovascular: Reports no additional cardiovascular complaints Respiratory: Respiratory: Reports no additional respiratory complaints Gastrointestinal: Gastrointestinal: Reports no additional gastrointestinal complaints Genitourinary: Genitourinary: Reports no additional female genitourinary complaints Musculoskeletal: Musculoskeletal: Reports no additional musculoskeletal complaints Integumentary/Breasts: Skin/Breast: Reports as per HPI, Denies breast pain, Reports pruritus, Reports erythema, Reports rash and Denies skin ulcer Psychiatric: Psychiatric: Reports no additional psychiatric complaints Endocrine: Endocrine: Reports no additional endocrine complaints Hematologic/Lymphatic: Hematologic/Lymphatic: Reports no additional hematologic/lymphatic complaints Allergic/Immunologic: Allergic/Immunologic: Reports as per HPI, Denies lip swelling, Denies throat swelling, Denies tongue swelling and Denies wheezing PMFSH Past Medical History Medical History Arthritis Family History Family History Father Lung cancer Mother Pancreatic cancer Hypertension Social History Social History Social History: Caffeine-none Smoking status: Never smoker Second hand tobacco smoke exposure: No Alcohol intake: never Substance use: never Substance use type: does not use Lack of Transportation: No Lack of Food: Never True Current Housing: I Have Housing Concerned About Future Housing: No Difficulty Paying Gas/Electric Bills: No Difficulty Paying for Meds: No Currently Unemployed: No Education: High School Diploma/GED Difficulty w/ Childcare or Family Care: No Living arrangements: with family Occupation/Education: retired Agree to blood products: Yes Exam Const: General: healthy appearing and no acute distress Nutritional Appearance: well nourished Orientation/consciousness: patient oriented x3 Limitations: no limitations Neck: Neck: no lymphadenopathy Resp: Effort & Inspection: normal respiratory effort Auscultation: clear to auscultation bilaterally Cardio: Rate: regular rate Rhythm: regular rhythm Skin: General skin exam: normal color Rashes: rash noted Wounds: no wounds Other: moderate diffuse, erythematous papular rash to left axilla, minimalpapular rash to right axilla Neuro: General: patient oriented x3 Speech: normal speech Gait exam (Neuro): Normal gait present Extrem: General: normal to inspection and no clubbing, cyanosis or edema Psych: Mental Status: mental status grossly normal Affect: normal affect Attitude: cooperative Course Course Level of Care: Express Care Visit Vital Signs Vital signs: Vital Signs Temperature 97.0 F L 11/19/24 10:06 Pulse Rate 57 L 11/19/24 10:06 Respiratory Rate 16 11/19/24 10:06 Blood Pressure 144/93 H 11/19/24 10:06 Pulse Oximetry 97 11/19/24 10:06 Oxygen Delivery Room Air 11/19/24 10:06 Temperature 97.0 F L 11/19/24 10:06 Pulse Rate 57 L 11/19/24 10:06 Respiratory Rate 16 11/19/24 10:06 Blood Pressure 144/93 H 11/19/24 10:06 Pulse Oximetry 97 11/19/24 10:06 Oxygen Delivery Room Air 11/19/24 10:06 MDM - Skin/Abscess/Foreign Bdy MDM Narrative Medical decision making narrative: Discharge instructions reviewed with patient, as well as provided in writing per nursing staff. The instructions also include specific and strict return/GO TO THE ER as well as f/u information. All questions have been answered, and the patient deny any further questions with discharge and discharge plan. Differential Diagnosis Differential diagnosis: Likely urticaria, cellulitis, eczema, insect bites, impetigo and contact dermatitis Medical Records Attestation: I reviewed the patient's medical records. Discharge Plan Discharge Clinical Impression: Contact dermatitis Patient Disposition: Home Condition: Stable Instructions: Antibiotic Form, Contact Dermatitis (ED) Additional Instructions: Use the topical steroid twice a day as needed and rash is gone. Use the Medrol Clem as directed. May continue to use the oral antihistamines as needed. Follow-up with primary care if symptoms not resolved. Patient Language: Maltese Prescriptions: New triamcinolone acetonide 0.1 % cream 1 applic topical TID Qty: 80 0RF methylprednisolone [Medrol (Clem)] 4 mg tablets,dose pack See Rx Instructions .ROUTE .COMPLEX Qty: 21 0RF Rx Instructions: for 6 days No Action atorvastatin 10 mg tablet metoprolol succinate 100 mg tablet extended release 24 hr PO spironolactone 25 mg tablet lisinopril 10 mg tablet vitamin D3-vitamin K2 125-90 mcg capsule PO Follow-up/Referrals: Jesse,MD [place] [Primary Care Provider] - Time of Disposition: 10:30
== END 2024-11-19 10:36 | disposition home or self-care (01) ==
PROVIDERS: Emergency Provider Nurse Practitioner Family; PCP Hospitalist
DX: L25.9 Unspecified contact dermatitis, unspecified cause (principal); M19.90 Unspecified osteoarthritis, unspecified site
CPT/HCPCS: 99213; G0463